=== PATIENT | male | born 1990 | race African-American/Black ===

== ENCOUNTER → 2018-08-19 | Outpatient (REF) | payer MEDICAID | LOC: M SFHCLERA 12:21 | DX: J02.9 Acute pharyngitis, unspecified (principal) ==

== ENCOUNTER → 2018-09-29 | Outpatient (REF) | payer MEDICAID | LOC: M SFHCLERA 18:38 | PROVIDERS: ATTEND Physician Assistant | DX: J02.9 Acute pharyngitis, unspecified (principal) ==

== ENCOUNTER 2019-02-05 12:27 | Emergency (ER) | payer MEDICAID, OTHER ==
[~2019-02-05] VITALS: Ht 180.3 cm; Wt 157.3 kg
[2019-02-05] MEDS ORDERED: IBUPROFEN 600 MG TAB PO ONE (13:15)
[2019-02-05] MEDS ORDERED: IBUP-1022 PO (13:58)
--- NOTE | 2019-02-05 13:59 | REP ---
RIGHT FOOT, FOUR VIEWS: HISTORY: Pain. There is no acute fracture or dislocation. The joint spaces are normal in appearance. IMPRESSION: There is no acute fracture or dislocation. Electronically Signed by Rodrigo Toussaint MD 02/05/2019 02:00 P
[2019-02-05 14:23] VITALS: BP 159/82
== END 2019-02-05 14:24 | disposition home or self-care (01) ==
LOC: M ED 12:27
DX: S96.911A Strain of unspecified muscle and tendon at ankle and foot level, right foot, initial encounter (principal); X58.XXXA Exposure to other specified factors, initial encounter; Y92.89 Other specified places as the place of occurrence of the external cause; I10 Essential (primary) hypertension; J45.909 Unspecified asthma, uncomplicated

== ENCOUNTER → 2019-07-21 | Outpatient (REF) | payer OTHER ==
[~2019-07-21] MED LIST: IBUP-1022 PO
[2019-07-21 17:16] LABS: BLOOD UREA NITROGEN 13 MG/DL (7-18); CALCIUM LEVEL 9.7 MG/DL (8.5-10.1); CARBON DIOXIDE LEVEL 30 MEQ/L (21-32); CHLORIDE LEVEL 102 MEQ/L (98-107); CREATININE FOR GFR 1.16 MG/DL (0.70-1.30); GLOMERULAR FILTRATION RATE > 60.0 (>60); GLUCOSE, FASTING 88 MG/DL (70-100); POTASSIUM SERUM 4.4 MEQ/L (3.5-5.1); SODIUM LEVEL 139 MEQ/L (136-145)
== END ==
LOC: M SFHCCLAY 10:45
PROVIDERS: ATTEND Family Medicine
DX: I10 Essential (primary) hypertension (principal)

== ENCOUNTER → 2019-08-05 | Outpatient (REF) | payer OTHER ==
[~2019-08-05] MED LIST changes: +BENA25CA4 PO; +NIFE20CA PO; +TEST200I14 IM; +ZOLO25TA PO
[2019-08-05 13:24] LABS: HEMOGLOBIN 18.5 g/dl (13.5-17.5); MEAN CORPUSCULAR HEMOGLOBIN 27.4 pg (27.0-33.0); MEAN CORPUSCULAR HGB CONC 31.4 g/dl (32.0-36.5); MEAN CORPUSCULAR VOLUME 87.4 fl (80.0-96.0); PLATELET COUNT, AUTOMATED 227 10^3/uL (150-450); RED BLOOD COUNT 6.75 10^6/uL (4.30-6.10); WHITE BLOOD COUNT 6.1 10^3/uL (4.0-10.0)
== END ==
LOC: M LABDRAWC 11:59
PROVIDERS: ATTEND Plastic Surgery Surgery of the Hand
DX: L91.0 Hypertrophic scar (principal)

== ENCOUNTER 2019-08-11 06:04 | Day surgery (SDC) | payer OTHER ==
[~2019-08-11] VITALS: Ht 180.3 cm; Wt 169.2 kg
[~2019-08-11 06:04] MED LIST changes: +LIDOCAINE 1% MDV 20ML VIAL SQ PRN; +LR 1,000 ML IV ONE; +ceFAZolin SOD 1 GM in D5W MINI-BAG PLUS 50 ML IV ONE
[2019-08-11] MEDS ORDERED: LIDOCAINE 2% W/EPIN INJ 20ML **PRES FREE As Ordered ONE (06:50)
[2019-08-11] MEDS ORDERED: BACITRACIN OINT 30GM As Ordered ONE (06:51)
[2019-08-11] MEDS ORDERED: ceFAZolin 2 GM/D5W 50 ML IV BAG (J0690 PER 500MG) As Ordered ONE (07:02)
[2019-08-11] MEDS ORDERED: fentaNYL 100 MCG/2 ML INJECTION (J3010) As Ordered ONE (07:08)
[2019-08-11] MEDS ORDERED: LIDOCAINE 2% INJ 100 MG/5 ML SDV (FOR ANES.) As Ordered ONE (07:08)
[2019-08-11] MEDS ORDERED: MIDAZOLAM INJ 2 MG/2 ML VIAL (J2250) As Ordered ONE ×2 (07:08→07:34)
[2019-08-11] MEDS ORDERED: PROPOFOL 200 MG/20 ML VIAL As Ordered ONE (07:08)
[2019-08-11] MEDS ORDERED: POVIDONE-IODINE 5% OPHTH PREP SOL 30ML As Ordered ONE (07:16)
[2019-08-11] MEDS ORDERED: KETAMINE HCL 200 MG/20 ML VIAL As Ordered ONE (07:25)
[2019-08-11] MEDS ORDERED: TRIAMCINOLONE ACETONIDE SUSP 40 MG/ML VIAL (J3301) As Ordered ONE (07:30)
[2019-08-11] MEDS ORDERED: ceFAZolin SOD 2 GM in IV 1 EA IV ONE (07:30)
--- NOTE | 2019-08-11 08:01 | POST-OPPD ---
Postoperative Procedure Note Date Of Procedure: Aug 11, 2019 PREOPERATIVE DIAGNOSIS: Left Chin Keloid POSTOPERATIVE DIAGNOSIS: same FINDINGS: Left chin Keloid PROCEDURE: Excision Left Chin Keloid SURGEON: Dr Pyle ANESTHESIA: Local with sedation SPECIMENS: Left chin keloid ESTIMATED BLOOD LOSS: 1 cc REPLACED: none DRAINS: none COMPLICATIONS: none POSTOPERATIVE CONDITION: stable BROCK PYLE DO Aug 11, 2019 08:01
[2019-08-11 08:55] VITALS: BP 121/77
--- NOTE | 2019-08-11 20:22 | RO ---
DATE OF PROCEDURE: 08/11/2019 PREPROCEDURE DIAGNOSIS: Left chin keloid. POSTPROCEDURE DIAGNOSIS: Left chin keloid. OPERATIVE PROCEDURE: Excision left chin keloid. SURGEON: Lesly Sánchez DO ANESTHESIA: Local with sedation. SPECIMENS: Left chin keloid. ESTIMATED BLOOD LOSS: 1 mL REPLACED: None. DRAINS: None. COMPLICATIONS: None. INDICATION FOR THE PROCEDURE: This is a 29-year-old male who developed a pedunculated keloid which is about 2 cm in diameter on his left posterior chin. Patient wishes to have it removed. It is currently not active. It does not itch and it is not inflamed. The patient is ready for excision. All risks and benefits and alternatives discussed with the patient in detail and he is ready to proceed. DESCRIPTION OF PROCEDURE: On the day of surgery, informed consent was confirmed and he was brought into the operating room, placed in supine position. Slight sedation was given to the patient and then he was prepped and draped in the usual sterile fashion. 2% lidocaine with epinephrine was infiltrated in the area and after the effects of lidocaine were assured, the elliptical incision was carried out at the base of the keloid, taking all the scar tissue with it. Hemostasis obtained using electrocautery. No undermining was needed and then the wound was closed with interrupted #4-0 and #5-0 Monocryl sutures. Total in length is 2 cm. Then 40 mg of Kenalog 0.5 mL was infiltrated in the area of the closure. Bacitracin ointment was applied. Patient tolerated the procedure well and he was transferred to the recovery room in stable condition. GALEN
== END 2019-08-11 08:57 | disposition home or self-care (01) ==
LOC: M SDC 06:04
PROVIDERS: ATTEND Plastic Surgery Surgery of the Hand
DX: L91.0 Hypertrophic scar (principal); I10 Essential (primary) hypertension; F41.9 Anxiety disorder, unspecified; F32.9 Major depressive disorder, single episode, unspecified; H93.12 Tinnitus, left ear; H91.91 Unspecified hearing loss, right ear; Z79.899 Other long term (current) drug therapy
CPT/HCPCS: 11442; 88302; J0690; J2250; J3301

== ENCOUNTER → 2020-12-21 | Outpatient (REF) | payer OTHER ==
[~2020-12-21] MED LIST changes: -LIDOCAINE 1% MDV 20ML VIAL SQ PRN; -LR 1,000 ML IV ONE; -ceFAZolin SOD 1 GM in D5W MINI-BAG PLUS 50 ML IV ONE
[2020-12-21 16:56] LABS: ALBUMIN 3.5 GM/DL (3.2-5.2); ALT/SGPT 42 U/L (12-78); BILIRUBIN,TOTAL 0.4 MG/DL (0.2-1.0); BLOOD UREA NITROGEN 13 MG/DL (7-18); CALCIUM LEVEL 9.4 MG/DL (8.5-10.1); CARBON DIOXIDE LEVEL 30 MEQ/L (21-32); CHLORIDE LEVEL 101 MEQ/L (98-107); CHOLESTEROL LEVEL 251 MG/DL (<200); CHOLESTEROL RISK RATIO 6.435 (<5); CREATININE FOR GFR 1.25 MG/DL (0.70-1.30); GLOMERULAR FILTRATION RATE > 60.0 (>60); GLUCOSE, FASTING 81 MG/DL (70-100); HDL CHOLESTEROL 39 MG/DL (>40); LDL CHOLESTEROL 180 MG/DL (<100); NON-HDL-C 212 MG/DL; POTASSIUM SERUM 4.4 MEQ/L (3.5-5.1); SODIUM LEVEL 137 MEQ/L (136-145); TOTAL PROTEIN 7.9 GM/DL (6.4-8.2); TRIGLYCERIDES LEVEL 161 MG/DL (<150)
[2020-12-21 17:23] LABS: TESTOSTERONE 191 NG/DL (241-827)
[2020-12-21 18:03] LABS: HIV 1&2 SCREEN CENTAUR NEGATIVE (NEGATIVE)
== END ==
LOC: M LAB REF 15:44
PROVIDERS: ATTEND Family Medicine Addiction Medicine
DX: F64.0 Transsexualism (principal); Z20.9 Contact with and (suspected) exposure to unspecified communicable disease; I10 Essential (primary) hypertension

== ENCOUNTER 2021-03-13 11:40 | Emergency (ER) | payer MEDICAID, OTHER ==
[~2021-03-13] VITALS: Ht 172.7 cm; Wt 171.4 kg
[2021-03-13] MEDS ORDERED: SYMB80INH INH (11:52)
[2021-03-13] MEDS ORDERED: NIFE90TA20 PO (11:52)
[2021-03-13] MEDS ORDERED: KETOROLAC 30 MG/ML 1ML VIAL IV ONE (12:10)
--- NOTE | 2021-03-13 12:27 | REP ---
INDICATION: CP COMPARISON: None. TECHNIQUE: Portable AP view of the chest FINDINGS: The mediastinum and cardiac silhouette are stable and within normal limits for portable technique. No obvious focal consolidation, effusion, or pneumothorax.. Skeletal structures are intact. IMPRESSION: No focal consolidation or effusion appreciated. <Electronically signed by Shakeel Castro > 03/13/21 [id number]
[2021-03-13 13:46] VITALS: BP 156/89
--- NOTE | 2021-03-13 18:22 | ECGEPIP ---
[facility] - ED Test Date: 2021-03-13 Pat Name: DIMITRI HARRY Department: Room: - Gender: Male Counselor Camp: [place] : 1990 Requested By: Janee Thomas Order Number: [id number] Reading MD: Janee Thomas Measurements Intervals [place] Rate: 107 P: 55 NC: 158 QRS: 15 QRSD: 94 T: 96 QT: 338 QTc: 451 Interpretive Statements Sinus tachycardia Nonspecific T wave abnormality delayed r progression no prior Electronically Signed on 03-13-2021 18:22:21 EDT by Janee Thomas
== END 2021-03-13 14:00 | disposition home or self-care (01) ==
LOC: M ED 11:40
DX: R07.9 Chest pain, unspecified (principal); I10 Essential (primary) hypertension; F12.10 Cannabis abuse, uncomplicated
CPT/HCPCS: 71045; 80047; 85379; 93005; 96374; 99284; J1885

== ENCOUNTER → 2021-04-19 | Outpatient (REF) | payer OTHER ==
[~2021-04-19] MED LIST changes: +NIFE90TA20 PO; +SYMB80INH INH
[2021-04-19 17:31] LABS: BLOOD UREA NITROGEN 13 MG/DL (7-18); CALCIUM LEVEL 9.8 MG/DL (8.5-10.1); CARBON DIOXIDE LEVEL 30 MEQ/L (21-32); CHLORIDE LEVEL 99 MEQ/L (98-107); CHOLESTEROL LEVEL 261 MG/DL (<200); CHOLESTEROL RISK RATIO 6.692 (<5); CREATININE FOR GFR 1.22 MG/DL (0.70-1.30); FREE T4 1.09 NG/DL (0.76-1.46); GLOMERULAR FILTRATION RATE > 60.0 (>60); GLUCOSE, FASTING 100 MG/DL (70-100); HDL CHOLESTEROL 39 MG/DL (>40); LDL CHOLESTEROL 181 MG/DL (<100); NON-HDL-C 222 MG/DL; POTASSIUM SERUM 4.7 MEQ/L (3.5-5.1); SODIUM LEVEL 138 MEQ/L (136-145); TRIGLYCERIDES LEVEL 203 MG/DL (<150)
== END ==
LOC: M SFHCCLAY 11:48
PROVIDERS: ATTEND Family Medicine
DX: Z83.49 Family history of other endocrine, nutritional and metabolic diseases (principal); E66.01 Morbid (severe) obesity due to excess calories; Z68.43 Body mass index [BMI] 50.0-59.9, adult; I11.9 Hypertensive heart disease without heart failure; Z13.1 Encounter for screening for diabetes mellitus; Z13.220 Encounter for screening for lipoid disorders

== ENCOUNTER → 2022-03-22 | Outpatient (REF) | payer OTHER | LOC: M SFHCCLAY 10:13 | PROVIDERS: ATTEND Family Medicine | DX: I11.9 Hypertensive heart disease without heart failure (principal); Z53.9 Procedure and treatment not carried out, unspecified reason ==

== ENCOUNTER → 2022-08-06 | Outpatient (REF) | payer OTHER ==
[2022-08-06 13:39] LABS: BASO % 0.4 % (0.0-1.0); EOS # 0.2 10^3/uL (0.0-0.5); EOS % 2.4 % (0.0-3.0); HEMOGLOBIN 17.2 g/dl (13.5-17.5); LYMPH # 2.6 10^3/uL (1.5-5.0); LYMPH % 36.7 % (24.0-44.0); MEAN CORPUSCULAR HEMOGLOBIN 28.8 pg (27.0-33.0); MEAN CORPUSCULAR HGB CONC 32.5 g/dl (32.0-36.5); MEAN CORPUSCULAR VOLUME 88.8 fl (80.0-96.0); MONO # 0.7 10^3/uL (0.0-0.8); MONO % 9.9 % (2.0-8.0); NEUTROPHILS # 3.5 10^3/uL (1.5-8.5); NEUTROPHILS % 49.9 % (36.0-66.0); PLATELET COUNT, AUTOMATED 316 10^3/uL (150-450); RED BLOOD COUNT 5.97 10^6/uL (4.30-6.10)
[2022-08-06 14:27] LABS: ALBUMIN 3.9 GM/DL (3.2-5.2); ALT/SGPT 50 U/L (12-78); BILIRUBIN,TOTAL 0.4 MG/DL (0.2-1.0); BLOOD UREA NITROGEN 19 MG/DL (7-18); CARBON DIOXIDE LEVEL 27 MEQ/L (21-32); CHLORIDE LEVEL 101 MEQ/L (98-107); CHOLESTEROL LEVEL 291 MG/DL (<200); CHOLESTEROL RISK RATIO 6.928 (<5); CREATININE FOR GFR 1.29 MG/DL (0.70-1.30); GLOMERULAR FILTRATION RATE > 60.0 (>60); GLUCOSE, FASTING 97 MG/DL (70-100); HDL CHOLESTEROL 42 MG/DL (>40); LDL CHOLESTEROL 212 MG/DL (<100); NON-HDL-C 249 MG/DL; POTASSIUM SERUM 4.3 MEQ/L (3.5-5.1); SODIUM LEVEL 135 MEQ/L (136-145); TOTAL PROTEIN 9.2 GM/DL (6.4-8.2); TRIGLYCERIDES LEVEL 185 MG/DL (<150)
[2022-08-06 15:04] LABS: HEMOGLOBIN A1c 6.3 %
[2022-08-06 15:14] LABS: TESTOSTERONE 31 NG/DL (241-827)
== END ==
LOC: M LAB REF 12:34
PROVIDERS: ATTEND Family Medicine Addiction Medicine
DX: R79.89 Other specified abnormal findings of blood chemistry (principal); R73.9 Hyperglycemia, unspecified; E78.5 Hyperlipidemia, unspecified

== ENCOUNTER → 2022-10-12 | Outpatient (CLI) | payer OTHER ==
[~2022-10-12] MED LIST changes: +PROHANCE 279.3MG/ML 15ML VIAL ONE; +PROHANCE 279.3MG/ML 5ML VIAL ONE
== END ==
LOC: M PLAIMG 11:21
PROVIDERS: ATTEND Optometrist
DX: H05.10 Unspecified chronic inflammatory disorders of orbit (principal)
CPT/HCPCS: 70544; 70553; A9576

== ENCOUNTER 2023-02-18 14:25 | Emergency (ER) | payer OTHER ==
[~2023-02-18] VITALS: Ht 180.3 cm; Wt 183.5 kg
[~2023-02-18 14:25] MED LIST changes: -PROHANCE 279.3MG/ML 15ML VIAL ONE; -PROHANCE 279.3MG/ML 5ML VIAL ONE
[2023-02-18 16:47] LABS: BASO % 0.3 % (0.0-1.0); EOS # 0.1 10^3/uL (0.0-0.5); EOS % 1.9 % (0.0-3.0); HEMATOCRIT 51.2 % (42.0-52.0); LYMPH # 2.5 10^3/uL (1.5-5.0); LYMPH % 36.7 % (24.0-44.0); MEAN CORPUSCULAR HEMOGLOBIN 29.5 pg (27.0-33.0); MEAN CORPUSCULAR HGB CONC 31.3 g/dl (32.0-36.5); MEAN CORPUSCULAR VOLUME 94.5 fl (80.0-96.0); MONO # 0.6 10^3/uL (0.0-0.8); MONO % 9.4 % (2.0-8.0); NEUTROPHILS # 3.4 10^3/uL (1.5-8.5); NEUTROPHILS % 51.3 % (36.0-66.0); PLATELET COUNT, AUTOMATED 263 10^3/uL (150-450); RED BLOOD COUNT 5.42 10^6/uL (4.30-6.10); WHITE BLOOD COUNT 6.7 10^3/uL (4.0-10.0)
[2023-02-18 16:49] LABS: LIPASE 33 U/L (12-53)
[2023-02-18 16:53] LABS: ALKALINE PHOSPHATASE 119 U/L (46-116); ALT/SGPT 39 U/L (7.0-40); AST/SGOT 24 U/L (<34); BILIRUBIN,DIRECT 0.1 MG/DL (<0.4); BILIRUBIN,TOTAL 0.3 MG/DL (0.3-1.2); BLOOD UREA NITROGEN 12 MG/DL (9-23); CALCIUM LEVEL 9.3 MG/DL (8.5-10.1); CARBON DIOXIDE LEVEL 28 MMOL/L (20-31); CHLORIDE LEVEL 103 MMOL/L (98-107); CK-MB VALUE MASS < 1.0 NG/ML (<3.6); GLOMERULAR FILTRATION RATE > 60.0 (>60); GLUCOSE, FASTING 92 MG/DL (60-100); POTASSIUM SERUM 4.3 MMOL/L (3.5-5.1); SODIUM LEVEL 138 MMOL/L (136-145); TOTAL PROTEIN 8.2 G/DL (5.7-8.2)
[2023-02-18 16:58] LABS: CPK CREATINE PHOSPHOKINASE 167 U/L (46-171); MB/CK RELATIVE INDEX 0.59 (< OR =4)
[2023-02-18 19:05] LABS: RSV AMPLIFICATION NEGATIVE (NEGATIVE)
[2023-02-18] MEDS ORDERED: ACETAMINOPHEN 1000MG 100ML IV BAG IV ONE (20:05)
[2023-02-18] MEDS ORDERED: ISOVUE-370 76% 100ML VIAL As Ordered ONE (20:08)
[2023-02-18 21:15] LABS: CK-MB VALUE MASS < 1.0 NG/ML (<3.6); CPK CREATINE PHOSPHOKINASE 218 U/L (46-171); MB/CK RELATIVE INDEX 0.45 (< OR =4)
[2023-02-18] MEDS ORDERED: PEPC1TAB5 PO (23:17)
[2023-02-18 23:27] VITALS: BP 153/95
== END 2023-02-18 23:28 | disposition home or self-care (01) ==
LOC: M ED 14:25
DX: R07.9 Chest pain, unspecified (principal); R10.9 Unspecified abdominal pain; R51.9 Headache, unspecified; Z79.899 Other long term (current) drug therapy; Z79.1 Long term (current) use of non-steroidal anti-inflammatories (NSAID); Z79.890 Hormone replacement therapy
CPT/HCPCS: 36415; 71045; 74177; 80048; 80076; 82550; 82553; 83690; 85025; 87631; 93005; 99284; Q9967

== ENCOUNTER 2023-04-19 18:33 | Emergency (ER) | payer OTHER ==
[~2023-04-19] VITALS: Ht 180.3 cm; Wt 181.7 kg
[~2023-04-19 18:33] MED LIST changes: -NIFE90TA20 PO; +NIFE90TA46 PO; +PEPC1TAB5 PO
[2023-04-19 18:35] VITALS: BP 178/113; TEMP 97.5; O2SAT 96
== END 2023-04-19 22:01 | disposition left against medical advice (07) ==
LOC: M ED 18:33
DX: Z53.21 Procedure and treatment not carried out due to patient leaving prior to being seen by health care provider (principal)

== ENCOUNTER → 2023-08-14 | Outpatient (REF) | payer OTHER ==
[2023-08-14 15:00] LABS: ALBUMIN 3.7 G/DL (3.2-5.2); ALKALINE PHOSPHATASE 99 U/L (46-116); ALT/SGPT 37 U/L (7.0-40); AST/SGOT 23 U/L (<34); BILIRUBIN,TOTAL 0.8 MG/DL (0.3-1.2); BLOOD UREA NITROGEN 15 MG/DL (9-23); CALCIUM LEVEL 9.2 MG/DL (8.5-10.1); CARBON DIOXIDE LEVEL 28 MMOL/L (20-31); CHLORIDE LEVEL 100 MMOL/L (98-107); CHOLESTEROL LEVEL 221 MG/DL (<200); CHOLESTEROL RISK RATIO 6.22 (<5); CREATININE FOR GFR 1.04 MG/DL (0.70-1.30); GLOMERULAR FILTRATION RATE > 60.0 (>60); GLUCOSE, FASTING 84 MG/DL (60-100); HDL CHOLESTEROL 35.5 MG/DL (>40); LDL CHOLESTEROL 156.3 MG/DL (<100); NON-HDL-C 185.5 MG/DL; POTASSIUM SERUM 4.8 MMOL/L (3.5-5.1); SODIUM LEVEL 134 MMOL/L (136-145); TESTOSTERONE 612 NG/DL (241-827); THYROID STIMULATING HORMONE 1.656 uIU/ML (0.55-4.78); TOTAL PROTEIN 8.1 G/DL (5.7-8.2); TRIGLYCERIDES LEVEL 146 MG/DL (<150)
== END ==
LOC: M LAB REF 12:32
PROVIDERS: ATTEND Family Medicine Addiction Medicine
DX: F64.0 Transsexualism (principal); I10 Essential (primary) hypertension

== ENCOUNTER 2023-10-18 13:08 | Emergency (ER) | payer OTHER ==
[~2023-10-18] VITALS: Ht 180.3 cm; Wt 177.1 kg
[2023-10-18 15:35] LABS: BASO % 0.4 % (0.0-1.0); EOS # 0.1 10^3/uL (0.0-0.5); EOS % 2.3 % (0.0-3.0); HEMATOCRIT 64.5 % (42.0-52.0); MEAN CORPUSCULAR HEMOGLOBIN 27.7 pg (27.0-33.0); MEAN CORPUSCULAR HGB CONC 30.9 g/dl (32.0-36.5); MEAN CORPUSCULAR VOLUME 89.8 fl (80.0-96.0); MONO # 0.6 10^3/uL (0.0-0.8); MONO % 11.2 % (2.0-8.0); NEUTROPHILS # 2.5 10^3/uL (1.5-8.5); NEUTROPHILS % 47.9 % (36.0-66.0); PLATELET COUNT, AUTOMATED 220 10^3/uL (150-450); RED BLOOD COUNT 7.18 10^6/uL (4.30-6.10); WHITE BLOOD COUNT 5.3 10^3/uL (4.0-10.0)
[2023-10-18 15:53] LABS: HEMOGLOBIN 19.9 g/dl (13.5-17.5)
[2023-10-18 15:58] LABS: INR 1.09; PROTHROMBIN TIME 13.7 SECONDS (12.5-14.5)
[2023-10-18 15:59] LABS: PARTIAL THROMBOPLASTIN TIME 32.4 SECONDS (24.8-34.2)
[2023-10-18 16:07] LABS: ALBUMIN 3.8 G/DL (3.2-5.2); ALKALINE PHOSPHATASE 107 U/L (46-116); ALT/SGPT 47 U/L (7.0-40); AST/SGOT 45 U/L (<34); BILIRUBIN,DIRECT 0.1 MG/DL (<0.4); BILIRUBIN,TOTAL 0.6 MG/DL (0.3-1.2); BLOOD UREA NITROGEN 19 MG/DL (9-23); CALCIUM LEVEL 9.5 MG/DL (8.5-10.1); CARBON DIOXIDE LEVEL 32 MMOL/L (20-31); CHLORIDE LEVEL 101 MMOL/L (98-107); CK-MB VALUE MASS < 1.0 NG/ML (<3.6); CPK CREATINE PHOSPHOKINASE 184 U/L (46-171); CREATININE FOR GFR 1.14 MG/DL (0.70-1.30); GLOMERULAR FILTRATION RATE > 60.0 (>60); GLUCOSE, FASTING 81 MG/DL (60-100); LIPASE 40 U/L (12-53); MB/CK RELATIVE INDEX 0.54 (< OR =4); POTASSIUM SERUM 5.5 MMOL/L (3.5-5.1); SODIUM LEVEL 137 MMOL/L (136-145); TOTAL PROTEIN 8.4 G/DL (5.7-8.2)
[2023-10-18] MEDS ORDERED: NS 1,000 ML IV ONE (16:55)
[2023-10-18 17:36] LABS: THYROID STIMULATING HORMONE 3.218 uIU/ML (0.55-4.78)
[2023-10-18 17:39] LABS: FREE T4 1.15 NG/DL (0.89-1.76)
[2023-10-18 17:48] LABS: APPEARANCE, URINE HAZY (CLEAR); BACTERIA, URINE AUTO NEGATIVE (NEGATIVE); BILIRUBIN, URINE AUTO NEGATIVE (NEGATIVE); BLOOD, URINE BLOOD NEGATIVE (NEGATIVE); COLOR, URINE YELLOW (YELLOW); GLUCOSE, URINE (UA) AUTO NEGATIVE (NEGATIVE); KETONE, URINE AUTO NEGATIVE (NEGATIVE); LEUKOCYTE ESTERASE, URINE AUTO 1+ (NEGATIVE); NITRITE, URINE AUTO NEGATIVE (NEGATIVE); PROTEIN, URINE AUTO 2+ mg/dL (NEGATIVE); RBC, URINE AUTO 0 /HPF (0-3); SPECIFIC GRAVITY URINE AUTO 1.018 (1.002-1.035); SQUAMOUS EPITHELIAL CELL UR AU 5 /HPF (0-6); UROBILINOGEN, URINE AUTO 0.2 mg/dL (0.0-2.0); WBC, URINE AUTO 7 /HPF (0-3)
[2023-10-18 18:07] LABS: AMPHETAMINES LEVEL URINE NEGATIVE (NEGATIVE); BARBITURATES URINE NEGATIVE (NEGATIVE); BENZODIAZEPINES URINE NEGATIVE (NEGATIVE); COCAINE METABOLITE URINE NEGATIVE (NEGATIVE); METHADONE URINE NEGATIVE (NEGATIVE); OPIATES URINE NEGATIVE (NEGATIVE); PHENCYCLIDINE URINE NEGATIVE (NEGATIVE)
[2023-10-18 18:09] LABS: CANNABINOIDS URINE POSITIVE (NEGATIVE)
[2023-10-18 20:01] VITALS: BP 132/76; TEMP 97.8; O2SAT 98
== END 2023-10-18 20:07 | disposition home or self-care (01) ==
LOC: M ED 13:08
DX: R22.43 Localized swelling, mass and lump, lower limb, bilateral (principal); R74.01 Elevation of levels of liver transaminase levels; R00.2 Palpitations; I10 Essential (primary) hypertension; J45.909 Unspecified asthma, uncomplicated; F41.9 Anxiety disorder, unspecified; F32.A Depression, unspecified; R51.9 Headache, unspecified; Z79.52 Long term (current) use of systemic steroids; Z79.899 Other long term (current) drug therapy; Z88.8 Allergy status to other drugs, medicaments and biological substances

== ENCOUNTER → 2023-11-29 | Outpatient (CLI) | payer OTHER ==
[~2023-11-29] MED LIST changes: +PROHANCE 279.3MG/ML 5ML VIAL ONE
== END ==
LOC: M PLAIMG 13:59
PROVIDERS: ATTEND Family Medicine Addiction Medicine
DX: E23.6 Other disorders of pituitary gland (principal)

== ENCOUNTER → 2024-01-30 | Outpatient (REF) | payer OTHER ==
[~2024-01-30] MED LIST changes: -PROHANCE 279.3MG/ML 5ML VIAL ONE
[2024-01-30 12:42] LABS: BASO % 0.5 % (0.0-1.0); EOS # 0.1 10^3/uL (0.0-0.5); EOS % 1.6 % (0.0-3.0); HEMATOCRIT 64.4 % (42.0-52.0); LYMPH # 1.8 10^3/uL (1.5-5.0); LYMPH % 33.1 % (24.0-44.0); MEAN CORPUSCULAR HEMOGLOBIN 30.1 pg (27.0-33.0); MEAN CORPUSCULAR HGB CONC 31.7 g/dl (32.0-36.5); MONO # 0.7 10^3/uL (0.0-0.8); MONO % 13.2 % (2.0-8.0); NEUTROPHILS # 2.8 10^3/uL (1.5-8.5); NEUTROPHILS % 51.2 % (36.0-66.0); PLATELET COUNT, AUTOMATED 213 10^3/uL (150-450); RED BLOOD COUNT 6.78 10^6/uL (4.30-6.10); WHITE BLOOD COUNT 5.5 10^3/uL (4.0-10.0)
[2024-01-30 13:03] LABS: CHOLESTEROL RISK RATIO 4.48 (<5); HDL CHOLESTEROL 30.1 MG/DL (>40); LDL CHOLESTEROL 84.1 MG/DL (<100); NON-HDL-C 104.9 MG/DL
[2024-01-30 13:11] LABS: HEMOGLOBIN 20.4 g/dl (13.5-17.5)
== END ==
LOC: M LAB REF 12:00
PROVIDERS: ATTEND Family Medicine Addiction Medicine
DX: D75.1 Secondary polycythemia (principal); E78.5 Hyperlipidemia, unspecified

== ENCOUNTER → 2024-02-06 | Outpatient (CLI) | payer OTHER ==
[2024-02-06 18:21] LABS: BASO % 0.4 % (0.0-1.0); EOS # 0.2 10^3/uL (0.0-0.5); EOS % 2.2 % (0.0-3.0); HEMATOCRIT 63.8 % (42.0-52.0); LYMPH # 2.3 10^3/uL (1.5-5.0); LYMPH % 33.3 % (24.0-44.0); MEAN CORPUSCULAR HEMOGLOBIN 29.9 pg (27.0-33.0); MEAN CORPUSCULAR HGB CONC 32.4 g/dl (32.0-36.5); MEAN CORPUSCULAR VOLUME 92.2 fl (80.0-96.0); MONO # 0.8 10^3/uL (0.0-0.8); MONO % 11.7 % (2.0-8.0); NEUTROPHILS # 3.5 10^3/uL (1.5-8.5); PLATELET COUNT, AUTOMATED 221 10^3/uL (150-450); RED BLOOD COUNT 6.92 10^6/uL (4.30-6.10); WHITE BLOOD COUNT 6.8 10^3/uL (4.0-10.0)
[2024-02-06 18:23] LABS: IRON (FE) 63 UG/DL (65-175)
[2024-02-06 18:24] LABS: ALBUMIN 3.5 G/DL (3.2-5.2); ALKALINE PHOSPHATASE 112 U/L (46-116); ALT/SGPT 50 U/L (7.0-40); AST/SGOT 27 U/L (<34); BILIRUBIN,TOTAL 0.5 MG/DL (0.3-1.2); BLOOD UREA NITROGEN 19 MG/DL (9-23); CALCIUM LEVEL 9.7 MG/DL (8.5-10.1); CARBON DIOXIDE LEVEL 28 MMOL/L (20-31); CHLORIDE LEVEL 101 MMOL/L (98-107); CREATININE FOR GFR 1.21 MG/DL (0.70-1.30); GLOMERULAR FILTRATION RATE > 60.0 (>60); GLUCOSE, FASTING 88 MG/DL (60-100); POTASSIUM SERUM 4.3 MMOL/L (3.5-5.1); SODIUM LEVEL 137 MMOL/L (136-145); TOTAL PROTEIN 7.7 G/DL (5.7-8.2)
[2024-02-06 18:34] LABS: HEMOGLOBIN 20.7 g/dl (13.5-17.5)
== END ==
LOC: M LAB 17:05
PROVIDERS: ATTEND Family Medicine Addiction Medicine
DX: D75.1 Secondary polycythemia (principal)

== ENCOUNTER 2024-02-24 19:21 | Emergency (ER) | payer OTHER ==
[2024-02-24] MEDS ORDERED: LISI5TAB11 (19:39)
[2024-02-24] MEDS ORDERED: KETO5DRO28 (19:39)
[2024-02-24] MEDS ORDERED: TIZA10TA (19:39)
[2024-02-24] MEDS ORDERED: ATOR40TA75 (19:39)
[2024-02-24 19:59] LABS: BASO # 0.1 10^3/uL (0.0-0.2); EOS # 0.1 10^3/uL (0.0-0.5); EOS % 2.4 % (0.0-3.0); HEMATOCRIT 64.9 % (42.0-52.0); LYMPH # 2.1 10^3/uL (1.5-5.0); LYMPH % 41.8 % (24.0-44.0); MEAN CORPUSCULAR HEMOGLOBIN 29.6 pg (27.0-33.0); MEAN CORPUSCULAR HGB CONC 32.5 g/dl (32.0-36.5); MEAN CORPUSCULAR VOLUME 90.9 fl (80.0-96.0); MONO # 0.6 10^3/uL (0.0-0.8); NEUTROPHILS # 2.1 10^3/uL (1.5-8.5); NEUTROPHILS % 42.6 % (36.0-66.0); PLATELET COUNT, AUTOMATED 208 10^3/uL (150-450); RED BLOOD COUNT 7.14 10^6/uL (4.30-6.10); WHITE BLOOD COUNT 4.9 10^3/uL (4.0-10.0)
[2024-02-24 20:04] LABS: HEMOGLOBIN 21.1 g/dl (13.5-17.5)
[2024-02-24 21:27] LABS: CK-MB VALUE MASS < 1.0 NG/ML (<3.6)
[2024-02-24 21:30] LABS: BLOOD UREA NITROGEN 21 MG/DL (9-23); CALCIUM LEVEL 9.8 MG/DL (8.5-10.1); CARBON DIOXIDE LEVEL 24 MMOL/L (20-31); CHLORIDE LEVEL 101 MMOL/L (98-107); CPK CREATINE PHOSPHOKINASE 160 U/L (46-171); CREATININE FOR GFR 1.25 MG/DL (0.70-1.30); GLOMERULAR FILTRATION RATE > 60.0 (>60); GLUCOSE, FASTING 101 MG/DL (60-100); MB/CK RELATIVE INDEX 0.62 (< OR =4); POTASSIUM SERUM 4.9 MMOL/L (3.5-5.1); SODIUM LEVEL 138 MMOL/L (136-145)
[2024-02-24] MEDS ORDERED: ISOVUE-370 76% 100ML VIAL As Ordered ONE (22:02)
[2024-02-25 00:48] LABS: CK-MB VALUE MASS < 1.0 NG/ML (<3.6)
[2024-02-25 01:00] VITALS: TEMP 98.8
[2024-02-25 01:03] LABS: CPK CREATINE PHOSPHOKINASE 140 U/L (46-171); MB/CK RELATIVE INDEX 0.71 (< OR =4)
[2024-02-25 01:32] VITALS: BP 128/84; O2SAT 96
== END 2024-02-25 01:33 | disposition home or self-care (01) ==
LOC: M ED 19:21
DX: R07.9 Chest pain, unspecified (principal); I10 Essential (primary) hypertension; E78.5 Hyperlipidemia, unspecified; Z79.02 Long term (current) use of antithrombotics/antiplatelets; Z79.811 Long term (current) use of aromatase inhibitors; Z79.899 Other long term (current) drug therapy; Z91.048 Other nonmedicinal substance allergy status; Z88.8 Allergy status to other drugs, medicaments and biological substances
CPT/HCPCS: 36415; 71045; 71275; 80048; 82550; 82553; 84484; 85025; 85379; 93005; 93041; 94760; 99284; Q9967

== ENCOUNTER 2024-04-11 23:16 | Emergency (ER) | payer OTHER ==
[~2024-04-11] VITALS: Ht 175.3 cm; Wt 174.5 kg
[~2024-04-11 23:16] MED LIST changes: +ASPI81CH33 PO; +ATOR40TA75; +ERYT5OIN25; +KETO5DRO28; +LISI5TAB11; +MELO15TA28; +NEOM10OI; +TIZA10TA
[2024-04-12 00:15] LABS: BASO % 0.3 % (0.0-1.0); EOS # 0.2 10^3/uL (0.0-0.5); EOS % 2.5 % (0.0-3.0); HEMATOCRIT 53.3 % (42.0-52.0); HEMOGLOBIN 16.9 g/dl (13.5-17.5); LYMPH # 2.2 10^3/uL (1.5-5.0); LYMPH % 35.5 % (24.0-44.0); MEAN CORPUSCULAR HEMOGLOBIN 29.5 pg (27.0-33.0); MEAN CORPUSCULAR HGB CONC 31.7 g/dl (32.0-36.5); MONO # 0.6 10^3/uL (0.0-0.8); MONO % 9.4 % (2.0-8.0); NEUTROPHILS # 3.1 10^3/uL (1.5-8.5); NEUTROPHILS % 51.8 % (36.0-66.0); PLATELET COUNT, AUTOMATED 247 10^3/uL (150-450); RED BLOOD COUNT 5.73 10^6/uL (4.30-6.10); WHITE BLOOD COUNT 6.1 10^3/uL (4.0-10.0)
[2024-04-12 00:20] LABS: LIPASE 34 U/L (12-53)
[2024-04-12 00:22] LABS: ALBUMIN 3.5 G/DL (3.2-5.2); ALKALINE PHOSPHATASE 117 U/L (46-116); ALT/SGPT 58 U/L (7.0-40); AST/SGOT 22 U/L (<34); BILIRUBIN,DIRECT < 0.1 MG/DL (<0.4); BILIRUBIN,TOTAL 0.3 MG/DL (0.3-1.2); BLOOD UREA NITROGEN 31 MG/DL (9-23); CALCIUM LEVEL 9.8 MG/DL (8.5-10.1); CARBON DIOXIDE LEVEL 32 MMOL/L (20-31); CHLORIDE LEVEL 105 MMOL/L (98-107); CREATININE FOR GFR 1.33 MG/DL (0.70-1.30); GLOMERULAR FILTRATION RATE > 60.0 (>60); GLUCOSE, FASTING 174 MG/DL (60-100); POTASSIUM SERUM 4.5 MMOL/L (3.5-5.1); SODIUM LEVEL 142 MMOL/L (136-145); TOTAL PROTEIN 7.6 G/DL (5.7-8.2)
[2024-04-12 05:11] LABS: CK-MB VALUE MASS < 1.0 NG/ML (<3.6)
[2024-04-12 05:50] LABS: CPK CREATINE PHOSPHOKINASE 168 U/L (46-171); MB/CK RELATIVE INDEX 0.59 (< OR =4)
[2024-04-12] MEDS ORDERED: NS 1,000 ML IV ONE (06:15)
[2024-04-12] MEDS ORDERED: ONDANSETRON 4MG 2ML VIAL IV ONE (06:15)
[2024-04-12] MEDS ORDERED: KETOROLAC 30 MG/ML 1ML VIAL IV ONE (07:00)
[2024-04-12 07:56] LABS: CK-MB VALUE MASS < 1.0 NG/ML (<3.6); CPK CREATINE PHOSPHOKINASE 190 U/L (46-171); MB/CK RELATIVE INDEX 0.52 (< OR =4)
[2024-04-12 09:31] VITALS: BP 123/81; TEMP 97.4; O2SAT 96
== END 2024-04-12 09:43 | disposition home or self-care (01) ==
LOC: EDBD 23:16 → M ED 23:16
DX: R10.9 Unspecified abdominal pain (principal); R07.9 Chest pain, unspecified; I10 Essential (primary) hypertension; E78.5 Hyperlipidemia, unspecified; R51.9 Headache, unspecified; F12.10 Cannabis abuse, uncomplicated; Z91.011 Allergy to milk products; Z91.048 Other nonmedicinal substance allergy status; Z79.82 Long term (current) use of aspirin; Z79.02 Long term (current) use of antithrombotics/antiplatelets; Z79.811 Long term (current) use of aromatase inhibitors; Z79.899 Other long term (current) drug therapy

== ENCOUNTER 2024-06-10 09:15 | Emergency (ER) | payer OTHER ==
[~2024-06-10] VITALS: Ht 180.3 cm; Wt 173.4 kg
[~2024-06-10 09:15] MED LIST changes: +NIFE1CAP2 PO; -NIFE20CA PO
[2024-06-10 12:31] VITALS: BP 138/74; TEMP 97.7; O2SAT 97
[2024-06-10 13:01] LABS: BASO % 0.3 % (0.0-1.0); EOS # 0.1 10^3/uL (0.0-0.5); EOS % 1.7 % (0.0-3.0); HEMATOCRIT 55.7 % (42.0-52.0); HEMOGLOBIN 18.3 g/dl (13.5-17.5); LYMPH # 2.3 10^3/uL (1.5-5.0); LYMPH % 31.5 % (24.0-44.0); MEAN CORPUSCULAR HEMOGLOBIN 30.2 pg (27.0-33.0); MEAN CORPUSCULAR HGB CONC 32.9 g/dl (32.0-36.5); MEAN CORPUSCULAR VOLUME 91.9 fl (80.0-96.0); MONO # 0.6 10^3/uL (0.0-0.8); MONO % 7.7 % (2.0-8.0); NEUTROPHILS # 4.3 10^3/uL (1.5-8.5); NEUTROPHILS % 58.5 % (36.0-66.0); PLATELET COUNT, AUTOMATED 254 10^3/uL (150-450); RED BLOOD COUNT 6.06 10^6/uL (4.30-6.10); WHITE BLOOD COUNT 7.3 10^3/uL (4.0-10.0)
[2024-06-10 13:27] LABS: ALBUMIN 4.1 G/DL (3.2-5.2); ALKALINE PHOSPHATASE 133 U/L (46-116); ALT/SGPT 42 U/L (7.0-40); AST/SGOT 18 U/L (<34); BILIRUBIN,TOTAL 0.7 MG/DL (0.3-1.2); BLOOD UREA NITROGEN 27 MG/DL (9-23); CALCIUM LEVEL 10.2 MG/DL (8.5-10.1); CARBON DIOXIDE LEVEL 30 MMOL/L (20-31); CHLORIDE LEVEL 101 MMOL/L (98-107); CK-MB VALUE MASS < 1.0 NG/ML (<3.6); CREATININE FOR GFR 1.26 MG/DL (0.70-1.30); GLOMERULAR FILTRATION RATE > 60.0 (>60); GLUCOSE, FASTING 85 MG/DL (60-100); POTASSIUM SERUM 4.6 MMOL/L (3.5-5.1); SODIUM LEVEL 133 MMOL/L (136-145); TOTAL PROTEIN 8.9 G/DL (5.7-8.2)
[2024-06-10 13:28] LABS: CPK CREATINE PHOSPHOKINASE 166 U/L (46-171)
== END 2024-06-10 13:44 | disposition home or self-care (01) ==
LOC: M ED 09:15
DX: D45 Polycythemia vera (principal); I10 Essential (primary) hypertension; E78.5 Hyperlipidemia, unspecified; R51.9 Headache, unspecified; G47.33 Obstructive sleep apnea (adult) (pediatric); M54.50 Low back pain, unspecified; F41.9 Anxiety disorder, unspecified; F32.A Depression, unspecified; Z79.82 Long term (current) use of aspirin; Z79.02 Long term (current) use of antithrombotics/antiplatelets; Z79.811 Long term (current) use of aromatase inhibitors; Z79.899 Other long term (current) drug therapy

== ENCOUNTER 2024-07-11 15:17 | Emergency (ER) | payer OTHER ==
[~2024-07-11] VITALS: Ht 175.3 cm; Wt 172.2 kg
[~2024-07-11 15:17] MED LIST changes: -ATOR40TA75; +ATOR40TA75 PO; -KETO5DRO28; +KETO5DRO28 OU; -LISI5TAB11; +LISI5TAB11 PO; -MELO15TA28; +MELO15TA28 PO; -TIZA10TA; +TIZA10TA PO
[2024-07-11] MEDS ORDERED: FAMO1TAB11 PO (15:33)
[2024-07-11] MEDS ORDERED: PRAZ1CAP PO (15:33)
[2024-07-11] MEDS ORDERED: PARO20TA3 PO (15:33)
[2024-07-11] MEDS ORDERED: ASPI81CH33 PO (20:33)
[2024-07-11] MEDS: METOCLOPRAMIDE INJ 10MG/2ML VIAL IV ONE (20:44)
[2024-07-11] MEDS: KETOROLAC 30 MG/ML 1ML VIAL IV ONE (20:45)
[2024-07-11] MEDS ORDERED: HOME MED LIST COMPLETE! XX SCH (20:45)
[2024-07-11 20:48] LABS: BASO % 0.3 % (0.0-1.0); EOS # 0.1 10^3/uL (0.0-0.5); EOS % 1.8 % (0.0-3.0); HEMATOCRIT 47.9 % (42.0-52.0); LYMPH # 2.9 10^3/uL (1.5-5.0); LYMPH % 40.8 % (24.0-44.0); MEAN CORPUSCULAR HEMOGLOBIN 30.8 pg (27.0-33.0); MEAN CORPUSCULAR HGB CONC 33.4 g/dl (32.0-36.5); MEAN CORPUSCULAR VOLUME 92.1 fl (80.0-96.0); MONO # 0.6 10^3/uL (0.0-0.8); MONO % 8.4 % (2.0-8.0); NEUTROPHILS # 3.5 10^3/uL (1.5-8.5); NEUTROPHILS % 48.6 % (36.0-66.0); PLATELET COUNT, AUTOMATED 311 10^3/uL (150-450); WHITE BLOOD COUNT 7.1 10^3/uL (4.0-10.0)
[2024-07-11 21:16] LABS: CK-MB VALUE MASS < 1.0 NG/ML (<3.6)
[2024-07-11 21:17] LABS: ALBUMIN 3.6 G/DL (3.2-5.2); ALKALINE PHOSPHATASE 102 U/L (46-116); ALT/SGPT 45 U/L (7.0-40); AST/SGOT 24 U/L (<34); BILIRUBIN,TOTAL 0.5 MG/DL (0.3-1.2); BLOOD UREA NITROGEN 18 MG/DL (9-23); CALCIUM LEVEL 9.9 MG/DL (8.5-10.1); CARBON DIOXIDE LEVEL 29 MMOL/L (20-31); CHLORIDE LEVEL 105 MMOL/L (98-107); CREATININE FOR GFR 1.29 MG/DL (0.70-1.30); GLOMERULAR FILTRATION RATE > 60.0 (>60); GLUCOSE, FASTING 115 MG/DL (60-100); POTASSIUM SERUM 3.9 MMOL/L (3.5-5.1); SODIUM LEVEL 139 MMOL/L (136-145); TOTAL PROTEIN 7.8 G/DL (5.7-8.2)
[2024-07-11 21:18] LABS: CPK CREATINE PHOSPHOKINASE 140 U/L (46-171); MB/CK RELATIVE INDEX 0.71 (< OR =4)
[2024-07-11 21:50] VITALS: BP 155/87; TEMP 96.9; O2SAT 97
== END 2024-07-11 21:54 | disposition home or self-care (01) ==
LOC: M ED 15:17
DX: R51.9 Headache, unspecified (principal); I10 Essential (primary) hypertension; E78.5 Hyperlipidemia, unspecified; M54.50 Low back pain, unspecified; F41.9 Anxiety disorder, unspecified; F32.A Depression, unspecified; Z91.011 Allergy to milk products; Z91.018 Allergy to other foods; Z88.8 Allergy status to other drugs, medicaments and biological substances; Z91.048 Other nonmedicinal substance allergy status; Z79.82 Long term (current) use of aspirin; Z79.02 Long term (current) use of antithrombotics/antiplatelets; Z79.811 Long term (current) use of aromatase inhibitors; Z79.899 Other long term (current) drug therapy
CPT/HCPCS: 70450; 80053; 82550; 82553; 84484; 85025; 96374; 96375; 99284; J1885; J2765

== ENCOUNTER → 2024-08-03 | Outpatient (REF) | payer OTHER ==
[~2024-08-03] MED LIST changes: +FAMO1TAB11 PO; +PARO20TA3 PO; +PRAZ1CAP PO
[2024-08-03 13:36] LABS: HEMOGLOBIN A1c 5.8 % (4.0-6.0)
[2024-08-03 14:22] LABS: CREATININE, URINE 253.4 MG/DL; MAU/CREAT RATIO 798.3 MCG/MG (0.0-30.0)
== END ==
LOC: M LAB REF 12:24
PROVIDERS: ATTEND Pediatrics
DX: I10 Essential (primary) hypertension (principal); R73.9 Hyperglycemia, unspecified

== ENCOUNTER → 2024-09-24 | Outpatient (REF) | payer OTHER ==
[2024-09-24 10:59] LABS: BASO % 0.4 % (0.0-1.0); EOS # 0.1 10^3/uL (0.0-0.5); EOS % 1.4 % (0.0-3.0); HEMATOCRIT 54.8 % (42.0-52.0); HEMOGLOBIN 17.5 g/dl (13.5-17.5); LYMPH # 2.1 10^3/uL (1.5-5.0); LYMPH % 37.1 % (24.0-44.0); MEAN CORPUSCULAR HEMOGLOBIN 28.9 pg (27.0-33.0); MEAN CORPUSCULAR HGB CONC 31.9 g/dl (32.0-36.5); MEAN CORPUSCULAR VOLUME 90.4 fl (80.0-96.0); MONO # 0.6 10^3/uL (0.0-0.8); MONO % 10.3 % (2.0-8.0); NEUTROPHILS # 2.8 10^3/uL (1.5-8.5); NEUTROPHILS % 50.4 % (36.0-66.0); PLATELET COUNT, AUTOMATED 260 10^3/uL (150-450); RED BLOOD COUNT 6.06 10^6/uL (4.30-6.10); WHITE BLOOD COUNT 5.6 10^3/uL (4.0-10.0)
[2024-09-24 11:02] LABS: IRON (FE) 70 UG/DL (65-175); PERCENT SATURATION 21.1 % (19.7-50.0); TOTAL IRON BINDING CAPACITY 332 UG/DL (250-425)
[2024-09-24 11:03] LABS: THYROID STIMULATING HORMONE 2.404 uIU/ML (0.55-4.78)
[2024-09-24 11:04] LABS: FERRITIN 37.6 NG/ML (10.5-307.3); TOTAL 25(OH) VITAMIN D 24.1 NG/ML (20.0-100.0); VITAMIN B12 LEVEL 607 PG/ML (211-911)
[2024-09-24 11:06] LABS: ALBUMIN 3.6 G/DL (3.2-5.2); ALKALINE PHOSPHATASE 102 U/L (40-129); ALT/SGPT 50 U/L (7.0-40); AST/SGOT 20 U/L (<34); BILIRUBIN,TOTAL 0.5 MG/DL (0.3-1.2); BLOOD UREA NITROGEN 18 MG/DL (9-23); CALCIUM LEVEL 10.2 MG/DL (8.5-10.1); CARBON DIOXIDE LEVEL 29 MMOL/L (20-31); CHLORIDE LEVEL 103 MMOL/L (98-107); CHOLESTEROL LEVEL 147 MG/DL (<200); CHOLESTEROL RISK RATIO 5.01 (<5); CREATININE FOR GFR 1.22 MG/DL (0.70-1.30); GLOMERULAR FILTRATION RATE > 60.0 (>60); GLUCOSE, FASTING 97 MG/DL (60-100); HDL CHOLESTEROL 29.3 MG/DL (>40); LDL CHOLESTEROL 98.1 MG/DL (<100); NON-HDL-C 117.7 MG/DL; POTASSIUM SERUM 4.4 MMOL/L (3.5-5.1); SODIUM LEVEL 137 MMOL/L (136-145); TOTAL PROTEIN 7.9 G/DL (5.7-8.2); TRIGLYCERIDES LEVEL 98 MG/DL (<150)
== END ==
LOC: M LAB REF 10:21
PROVIDERS: ATTEND Registered Nurse
DX: Z01.812 Encounter for preprocedural laboratory examination (principal); Z13.220 Encounter for screening for lipoid disorders; D51.9 Vitamin B12 deficiency anemia, unspecified; E66.01 Morbid (severe) obesity due to excess calories; E55.9 Vitamin D deficiency, unspecified

== ENCOUNTER → 2024-11-23 | Outpatient (CLI) | payer OTHER ==
[~2024-11-23] MED LIST changes: +ALBU90AE2 IH; +ASPI81TA26 PO
== END ==
LOC: M RAD 07:49
PROVIDERS: ATTEND Pediatrics
DX: M54.50 Low back pain, unspecified (principal); M47.816 Spondylosis without myelopathy or radiculopathy, lumbar region; M47.817 Spondylosis without myelopathy or radiculopathy, lumbosacral region

== ENCOUNTER → 2024-11-25 | Outpatient (REF) | payer OTHER ==
[2024-11-25 17:37] LABS: BASO % 0.3 % (0.0-1.0); EOS # 0.2 10^3/uL (0.0-0.5); EOS % 2.9 % (0.0-3.0); HEMATOCRIT 57.5 % (42.0-52.0); HEMOGLOBIN 18.2 g/dl (13.5-17.5); LYMPH # 2.7 10^3/uL (1.5-5.0); LYMPH % 36.6 % (24.0-44.0); MEAN CORPUSCULAR HEMOGLOBIN 27.9 pg (27.0-33.0); MEAN CORPUSCULAR HGB CONC 31.7 g/dl (32.0-36.5); MEAN CORPUSCULAR VOLUME 88.2 fl (80.0-96.0); MONO # 0.6 10^3/uL (0.0-0.8); MONO % 8.8 % (2.0-8.0); NEUTROPHILS # 3.7 10^3/uL (1.5-8.5); NEUTROPHILS % 51.3 % (36.0-66.0); PLATELET COUNT, AUTOMATED 288 10^3/uL (150-450); RED BLOOD COUNT 6.52 10^6/uL (4.30-6.10); WHITE BLOOD COUNT 7.3 10^3/uL (4.0-10.0)
== END ==
LOC: M LAB REF 16:56
PROVIDERS: ATTEND Pediatrics
DX: Z01.818 Encounter for other preprocedural examination (principal)

== ENCOUNTER 2024-12-01 12:16 | Day surgery (SDC) | payer OTHER ==
[~2024-12-01] VITALS: Ht 177.8 cm; Wt 172.8 kg
[2024-12-01] MEDS ORDERED: MIDAZOLAM INJ 2MG/2ML VIAL As Ordered ONE (12:40)
[2024-12-01] MEDS ORDERED: ROCURONIUM BROMIDE 50MG/5ML VIAL As Ordered ONE (12:41)
[2024-12-01] MEDS ORDERED: propofoL 200 MG/20 ML VIAL As Ordered ONE (12:41)
[2024-12-01] MEDS ORDERED: LIDOCAINE 2% 100MG/5ML SDV (FOR ANES.) As Ordered ONE (12:41)
[2024-12-01] MEDS ORDERED: fentaNYL 100 MCG/2 ML INJECTION As Ordered ONE (12:41)
[2024-12-01] MEDS ORDERED: ACETAMINOPHEN 1000MG/100ML IV BAG As Ordered ONE (12:41)
[2024-12-01] MEDS ORDERED: VITA200032 PO (12:51)
[2024-12-01] MEDS: LR 1,000 ML IV SCH (13:03)
[2024-12-01] MEDS: OXYMETAZOLINE 0.05% NASAL SPRAY As Ordered ONE (14:34)
[2024-12-01] MEDS ORDERED: ONDANSETRON 4MG 2ML VIAL As Ordered ONE (14:36)
[2024-12-01] MEDS ORDERED: dexmedeTOMIDine (4MCG/ML)200MCG/50ML BTL (PRECEDEX) As Ordered ONE (14:43)
[2024-12-01] MEDS ORDERED: SUGAMMADEX SODIUM 500 MG/5 ML VIAL (BRIDION) As Ordered ONE (14:45)
[2024-12-01] MEDS ORDERED: fentaNYL 100 MCG/2 ML INJECTION IV PRN (15:00)
[2024-12-01] MEDS ORDERED: LR 1,000 ML IV SCH (15:00)
[2024-12-01] MEDS: ONDANSETRON 4MG 2ML VIAL IV PRN (15:50)
[2024-12-01] MEDS: oxyCODONE 5MG TAB PO PRN (15:51)
[2024-12-01 16:33] VITALS: BP 146/87; TEMP 98.1; O2SAT 95
[2024-12-02] MEDS ORDERED: UNRESOLVED CLARIFICATION ENTRY XX SCH (00:01)
== END 2024-12-01 16:38 | disposition home or self-care (01) ==
LOC: M SDC 12:16
PROVIDERS: ATTEND Otolaryngology
DX: J35.1 Hypertrophy of tonsils (principal); I10 Essential (primary) hypertension; E78.5 Hyperlipidemia, unspecified; K76.0 Fatty (change of) liver, not elsewhere classified; K21.9 Gastro-esophageal reflux disease without esophagitis; F41.9 Anxiety disorder, unspecified; F32.A Depression, unspecified; F43.10 Post-traumatic stress disorder, unspecified; G43.909 Migraine, unspecified, not intractable, without status migrainosus; J45.909 Unspecified asthma, uncomplicated; Z79.82 Long term (current) use of aspirin; Z79.899 Other long term (current) drug therapy; Z79.51 Long term (current) use of inhaled steroids; Z88.8 Allergy status to other drugs, medicaments and biological substances; Z91.018 Allergy to other foods
CPT/HCPCS: 42826; J0131; J1100; J2250; J2405; J3010

== ENCOUNTER → 2024-12-06 | Day surgery (SDC) | payer OTHER ==
[~2024-12-06] VITALS: Ht 175.3 cm; Wt 101.4 kg
[~2024-12-06] MED LIST changes: +ACETAMINOPHEN 1000MG/100ML IV BAG As Ordered ONE; +ALBUTEROL SULFATE 2.5MG/0.5ML INH NEB SOLN INH ONE; +HYDROMORPHONE HCL 0.5 MG/ 0.5 ML SYRINGE IV PRN; +LABETALOL 100MG/20ML VIAL As Ordered ONE; +LIDOCAINE 2% 100MG/5ML SDV (FOR ANES.) As Ordered ONE; +MIDAZOLAM INJ 2MG/2ML VIAL As Ordered ONE; +ONDANSETRON 4MG 2ML VIAL As Ordered ONE; +ONDANSETRON 4MG 2ML VIAL IV PRN; +ROCURONIUM BROMIDE 50MG/5ML VIAL As Ordered ONE; +TRANEXAMIC ACID INJection 1,000 MG in IV FLUID PLACE HOLDER 1 EA IV ONE; +VITA200032 PO; +dexmedeTOMIDine (4MCG/ML)200MCG/50ML BTL (PRECEDEX) As Ordered ONE; +diphenhydrAMINE 50MG/ML VIAL IV PRN; +fentaNYL 100 MCG/2 ML INJECTION As Ordered ONE; +fentaNYL 100 MCG/2 ML INJECTION IV PRN; +oxyCODONE 5MG TAB PO PRN; +propofoL 200 MG/20 ML VIAL As Ordered ONE
[2024-12-06 08:12] LABS: BASO % 0.1 % (0.0-1.0); EOS % 0.1 % (0.0-3.0); HEMATOCRIT 55.7 % (42.0-52.0); HEMOGLOBIN 17.6 g/dl (13.5-17.5); LYMPH # 1.7 10^3/uL (1.5-5.0); LYMPH % 18.7 % (24.0-44.0); MEAN CORPUSCULAR HEMOGLOBIN 27.6 pg (27.0-33.0); MEAN CORPUSCULAR HGB CONC 31.6 g/dl (32.0-36.5); MEAN CORPUSCULAR VOLUME 87.3 fl (80.0-96.0); MONO # 0.5 10^3/uL (0.0-0.8); MONO % 5.6 % (2.0-8.0); NEUTROPHILS # 6.6 10^3/uL (1.5-8.5); PLATELET COUNT, AUTOMATED 285 10^3/uL (150-450); RED BLOOD COUNT 6.38 10^6/uL (4.30-6.10); WHITE BLOOD COUNT 8.8 10^3/uL (4.0-10.0)
[2024-12-06 08:24] LABS: INR 0.98; PROTHROMBIN TIME 13.3 SECONDS (12.5-14.5)
[2024-12-06 08:45] LABS: BLOOD UREA NITROGEN 19 MG/DL (9-23); CALCIUM LEVEL 9.3 MG/DL (8.5-10.1); CARBON DIOXIDE LEVEL 28 MMOL/L (20-31); CHLORIDE LEVEL 100 MMOL/L (98-107); CREATININE FOR GFR 1.18 MG/DL (0.70-1.30); GLOMERULAR FILTRATION RATE > 60.0 (>60); GLUCOSE, FASTING 101 MG/DL (60-100); POTASSIUM SERUM 4.8 MMOL/L (3.5-5.1); SODIUM LEVEL 138 MMOL/L (136-145)
[2024-12-06] MEDS: TRANEXAMIC ACID INJection 1,000 MG in NS 100 ML IV ONE (08:58)
[2024-12-06] MEDS: SILVER NITRATE APPLICATOR (1 = QTY 10) TOP ONE (09:01)
[2024-12-06] MEDS: TRANEXAMIC ACID 100 MG/ML 10ML VIAL ONE (09:01)
[2024-12-06] MEDS: CETACAINE SPRAY 5GM TOP ONE (09:02)
[2024-12-06] MEDS: OXYMETAZOLINE 0.05% NASAL SPRAY As Ordered ONE (09:41)
[2024-12-06 11:30] VITALS: BP 176/95; TEMP 98.1; O2SAT 94
== END | disposition home or self-care (01) ==
LOC: EDUNIT# 07:24 → EDBD 07:25 → M ED 07:25 → M SDC 09:19
PROVIDERS: ATTEND Otolaryngology
DX: J95.830 Postprocedural hemorrhage of a respiratory system organ or structure following a respiratory system procedure (principal); Z91.018 Allergy to other foods; Z88.8 Allergy status to other drugs, medicaments and biological substances
CPT/HCPCS: 42962; 80048; 85025; 85610; 86850; 86900; 86901; 99285; J0131; J1100; J1920; J2250; J2405; J3010

== ENCOUNTER → 2025-01-11 | Outpatient (REF) | payer OTHER ==
[~2025-01-11] MED LIST changes: -ACETAMINOPHEN 1000MG/100ML IV BAG As Ordered ONE; -ALBUTEROL SULFATE 2.5MG/0.5ML INH NEB SOLN INH ONE; +CELE1CAP99; -HYDROMORPHONE HCL 0.5 MG/ 0.5 ML SYRINGE IV PRN; +JOBSMIS65 MC; -LABETALOL 100MG/20ML VIAL As Ordered ONE; -LIDOCAINE 2% 100MG/5ML SDV (FOR ANES.) As Ordered ONE; -MIDAZOLAM INJ 2MG/2ML VIAL As Ordered ONE; -ONDANSETRON 4MG 2ML VIAL As Ordered ONE; -ONDANSETRON 4MG 2ML VIAL IV PRN; -ROCURONIUM BROMIDE 50MG/5ML VIAL As Ordered ONE; -TRANEXAMIC ACID INJection 1,000 MG in IV FLUID PLACE HOLDER 1 EA IV ONE; +VRAY1.5C; -dexmedeTOMIDine (4MCG/ML)200MCG/50ML BTL (PRECEDEX) As Ordered ONE; -diphenhydrAMINE 50MG/ML VIAL IV PRN; -fentaNYL 100 MCG/2 ML INJECTION As Ordered ONE; -fentaNYL 100 MCG/2 ML INJECTION IV PRN; -oxyCODONE 5MG TAB PO PRN; -propofoL 200 MG/20 ML VIAL As Ordered ONE
[2025-01-11 18:13] LABS: CHOLESTEROL RISK RATIO 5.21 (<5); HDL CHOLESTEROL 29.9 MG/DL (>40); LDL CHOLESTEROL 79.1 MG/DL (<100); NON-HDL-C 126.1 MG/DL
[2025-01-11 18:14] LABS: THYROID STIMULATING HORMONE 2.371 uIU/ML (0.55-4.78)
[2025-01-11 18:20] LABS: HEMOGLOBIN A1c 6.2 % (4.0-6.0)
[2025-01-11 19:13] LABS: CREATININE, URINE 135.9 MG/DL
== END ==
LOC: M LAB REF 17:18
PROVIDERS: ATTEND Pediatrics
DX: R73.03 Prediabetes (principal); E66.01 Morbid (severe) obesity due to excess calories

== ENCOUNTER → 2025-06-04 | Outpatient (REF) | payer OTHER ==
[~2025-06-04] MED LIST changes: +CALC500C16 PO; +ELIQ2.5T; +FOLTTAB9 PO; +THERTAB19 PO
[2025-06-04 12:49] LABS: CALCIUM LEVEL 9.7 MG/DL (8.5-10.1); CARBON DIOXIDE LEVEL 27.0 MMOL/L (20-31); CHLORIDE LEVEL 102.0 MMOL/L (98-107); CHOLESTEROL LEVEL 123.0 MG/DL (<200); CHOLESTEROL RISK RATIO 4.48 (<5); CREATININE FOR GFR 1.35 MG/DL (0.70-1.30); GLOMERULAR FILTRATION RATE 71.1 (>60); LDL CHOLESTEROL 74.6 MG/DL (<100); NON-HDL-C 95.6 MG/DL; POTASSIUM SERUM 4.3 MMOL/L (3.5-5.1); SODIUM LEVEL 139.0 MMOL/L (136-145); TRIGLYCERIDES LEVEL 105.0 MG/DL (<150)
[2025-06-04 13:37] LABS: MALB URINE SIEMENS 124.0 MG/L
[2025-06-04 13:43] LABS: CREATININE, URINE 342.5 MG/DL; MAU/CREAT RATIO 36.2 MCG/MG (0.0-30.0)
[2025-06-04 14:17] LABS: ESTIMATED AVERAGE GLUCOSE 123.0 MG/DL (60-110)
== END ==
LOC: M LAB REF 11:51
PROVIDERS: ATTEND Pediatrics
DX: R80.9 Proteinuria, unspecified (principal); E78.5 Hyperlipidemia, unspecified; R73.03 Prediabetes; I11.9 Hypertensive heart disease without heart failure

== ENCOUNTER → 2025-08-02 | Outpatient (REF) | payer OTHER ==
[~2025-08-02] MED LIST changes: -IBUP-1022 PO; +IBUP600T42 PO
[2025-08-02 12:07] LABS: BASO # 0.0 10^3/uL (0.0-0.2); BASO % 0.4 % (0.0-1.0); EOS # 0.1 10^3/uL (0.0-0.5); EOS % 2.2 % (0.0-3.0); LYMPH # 2.4 10^3/uL (1.5-5.0); LYMPH % 46.6 % (24.0-44.0); MONO # 0.4 10^3/uL (0.0-0.8); MONO % 7.2 % (2.0-8.0); NEUTROPHILS # 2.2 10^3/uL (1.5-8.5); NEUTROPHILS % 43.4 % (36.0-66.0); PLATELET COUNT, AUTOMATED 248 10^3/uL (150-450)
[2025-08-02 12:28] LABS: ALT/SGPT 48 U/L (7.0-40); AST/SGOT 28 U/L (<34); CALCIUM LEVEL 9.8 MG/DL (8.5-10.1); CARBON DIOXIDE LEVEL 27 MMOL/L (20-31); CHLORIDE LEVEL 105 MMOL/L (98-107); CREATININE FOR GFR 1.32 MG/DL (0.70-1.30); GLOMERULAR FILTRATION RATE 73.0 (>60); POTASSIUM SERUM 4.3 MMOL/L (3.5-5.1); SODIUM LEVEL 144 MMOL/L (136-145)
[2025-08-02 12:59] LABS: HIV 1&2 SCREEN NEGATIVE (NEGATIVE)
[2025-08-02 13:07] LABS: HEPATITIS C VIRUS ABY INDEX < 0.02 INDEX (<0.8)
== END ==
LOC: M LAB REF 10:54
PROVIDERS: ATTEND Family Medicine
DX: F64.0 Transsexualism (principal); D75.1 Secondary polycythemia; Z79.899 Other long term (current) drug therapy; Z20.2 Contact with and (suspected) exposure to infections with a predominantly sexual mode of transmission